=== PATIENT | male | born 1985 | race Hispanic/Latino ===

== ENCOUNTER 2018-09-18 19:10 | Emergency (ER) | payer SELFPAY ==
[2018-09-18] MEDS ORDERED: TETANUS/DIPHTHERIA TOX ADULT 0.5 ML SYR IM ONE (19:30)
[2018-09-18] MEDS ORDERED: LIDOCAINE 1% W/EPINEPHRINE 20 ML VIAL INJ ONE (19:30)
[2018-09-18] MEDS ORDERED: HYDROCODONE/APAP 10MG-325MG TAB PO NR (19:30)
--- NOTE | 2018-09-18 20:05 | Diagnostic Imaging Report ---
History:Trauma. Comparison studies: None Technique: Axial images were obtained through the maxillofacial region. Coronal and sagittal images reconstructed from the axial data. Dose modulation, iterative reconstruction, and/or weight based adjustment of the mA/kV was utilized to reduce the radiation dose to as low as reasonably achievable. Intravenous contrast: None Findings: Soft tissues: Mild right premaxillary and inferior periorbital soft tissue edema/hematoma and small foci of soft tissue air with focal laceration. No radiopaque foreign body. Bones: No fractures or bony abnormalities. Orbits: Globes: Intact Extra or intraconal abnormalities: None. Paranasal sinuses: Moderate mucosal thickening in bilateral ethmoid and maxillary sinuses. Incidental finding: Dental caries with periapical lucency in right maxillary third molar and left maxillary first premolar, the activity of which is to be due to migraine clinically. IMPRESSION: 1. Mild right premaxillary and inferior periorbital soft tissue edema/hematoma and focal laceration. 2. No acute fracture. Signed by: Dr. Gabriela Rdz M.D. on 09/18/2018 8:01 PM
[2018-09-18 21:42] VITALS: BP 134/63
== END 2018-09-18 21:38 | disposition home or self-care (01) ==
LOC: ER 19:10
DX: S00.83XA Contusion of other part of head, initial encounter (principal); S01.111A Laceration without foreign body of right eyelid and periocular area, initial encounter; W22.8XXA Striking against or struck by other objects, initial encounter; Y99.0 Civilian activity done for income or pay
CPT/HCPCS: 70486; 90471; 90714; 96372; 99283